=== PATIENT | female | born 1955 | race Caucasian/White ===

== ENCOUNTER 2024-01-12 08:21 | Outpatient (CLI) | payer OTHER, SELFPAY ==
--- NOTE | ~2024-01-12 | MM_ITS ---
EXAMINATION: MM screening [facility] w sancho HISTORY: Screening mammogram TECHNIQUE: Craniocaudal and mediolateral oblique 3-D tomosynthesis images were obtained and synthetic 2-D images were generated. CAD analysis was submitted and interpreted. COMPARISON: 01/09/2009 Bilateral screening mammogram BREAST PARENCHYMAL COMPOSITION: The breasts are heterogeneously dense, which may obscure small masses . FINDINGS: There is no evidence of suspicious mass, calcification, or architectural distortion to sugg est malignancy in either breast. There has been no suspicious interval change. IMPRESSION: 1. No mammographic evidence of malignancy. 2. Recommend routine screening mammography in one year. BI-RADS Category 1: Negative Reviewed, dictated and finalized at location B.
== END 2024-01-12 08:22 | disposition home or self-care (01) ==
LOC: CHSIMG 08:24
PROVIDERS: PCP Nurse Practitioner Family; Visit Provider Nurse Practitioner Family
DX: Z12.31 Encounter for screening mammogram for malignant neoplasm of breast (principal)
CPT/HCPCS: 77063; 77067

== ENCOUNTER 2024-11-02 12:41 | Outpatient (CLI) | payer OTHER, SELFPAY | END 2024-11-02 12:42 | disposition home or self-care (01) | LOC: CHSIMG 12:43 | PROVIDERS: PCP Nurse Practitioner Family; Visit Provider Nurse Practitioner Family | DX: M79.661 Pain in right lower leg (principal); M79.89 Other specified soft tissue disorders; M71.21 Synovial cyst of popliteal space [Baker], right knee | CPT/HCPCS: 93971 ==